=== PATIENT | female | born 1950 | race Caucasian/White ===

== ENCOUNTER → 2022-01-17 | Day surgery (SDC) | payer MEDICARE, OTHER ==
[~2022-01-17] VITALS: Ht 157.5 cm; Wt 79.6 kg
[~2022-01-17] MED LIST: LOSARTAN-HCTZ1 EAC2 PO; OXCARBAZEPINE150 MG PO; OZEMPIC0.25 MG/0. SC; PANTOPRAZOLE SO40 MG PO
== END | disposition home or self-care (01) ==
LOC: FAS 13:23
DX: E11.36 Type 2 diabetes mellitus with diabetic cataract (principal); H26.493 Other secondary cataract, bilateral; H43.813 Vitreous degeneration, bilateral; I11.9 Hypertensive heart disease without heart failure; Z79.899 Other long term (current) drug therapy

== ENCOUNTER → 2022-02-14 | Day surgery (SDC) | payer MEDICARE, OTHER ==
[~2022-02-14] VITALS: Ht 157.5 cm; Wt 79.6 kg
== END | disposition home or self-care (01) ==
LOC: FAS 13:47
DX: E11.36 Type 2 diabetes mellitus with diabetic cataract (principal); H26.493 Other secondary cataract, bilateral; H43.813 Vitreous degeneration, bilateral; I11.9 Hypertensive heart disease without heart failure; Z79.899 Other long term (current) drug therapy